=== PATIENT | female | born 1990 | race Caucasian/White ===

== ENCOUNTER 2022-02-21 04:53 | Observation (INO) | payer MEDICAID ==
[~2022-02-21] VITALS: Ht 162.6 cm; Wt 90.7 kg
[2022-02-21] MEDS ORDERED: FERR325T6 PO (06:52)
[2022-02-21] MEDS ORDERED: PREN1TAB78 PO (06:52)
[2022-02-21] MEDS ORDERED: PRENATAL VIT/FE FUMARATE/FA TABLET PO SCH (09:00)
== END 2022-02-21 08:00 | disposition home or self-care (01) ==
LOC: 8 EST LDRP 04:53
PROVIDERS: ADMIT Obstetrics & Gynecology; ATTEND Obstetrics & Gynecology
DX: O26.893 Other specified pregnancy related conditions, third trimester (principal); R10.9 Unspecified abdominal pain; O62.9 Abnormality of forces of labor, unspecified; O99.891 Other specified diseases and conditions complicating pregnancy; M54.9 Dorsalgia, unspecified; Z3A.36 36 weeks gestation of pregnancy
CPT/HCPCS: 59025; G0378; 99281